=== PATIENT | female | born 1965 | race Caucasian/White ===

== ENCOUNTER 2024-11-24 09:41 | Outpatient (CLI) | payer OTHER, SELFPAY ==
[2024-11-24 10:25] LABS: Basophils Percent Auto 0.6 % (0.2-1.2); Eosinophils Absolute Auto 0.1 K/mm3 (0-0.3); Eosinophils Percent Auto 1.3 % (0-4.4); Hematocrit 41.1 % (37.0-47.0); Hemoglobin 14.2 g/dL (12.0-15.0); Immature Granulocyte Absolute 0.01 K/mm3 (0.00-0.031); Immature Granulocyte Percent A 0.2 % (0-0.5); Lymphocytes Percent Auto 33.6 % (18.3-44.2); Mean Corpuscular HGB Conc 34.5 g/dl (32-36); Mean Corpuscular Hemoglobin 30.1 pg (26-34); Mean Corpuscular Volume 87.3 fl (80-100); Mean Platelet Volume 9.6 fl (7.4-10.4); Monocytes Absolute Auto 0.5 K/mm3 (0.1-0.6); Monocytes Percent Auto 8.2 % (2.6-8.5); Neutrophils Absolute Auto 3.5 K/mm3 (1.3-6.7); Neutrophils Percent Auto 56.1 % (45.5-73.1); Platelet Count Result 347 k/mm3 (150-375); Red Blood Count 4.71 M/mm3 (4.2-5.4); Red Cell Distribution Width 12.1 % (11.5-14.5); White Blood Count 6.3 K/mm3 (4.5-10.0)
[2024-11-24 10:38] LABS: Alanine Aminotransferase 22 U/L (6-35); Albumin Level 4.7 g/dL (3.5-5.1); Alkaline Phosphatase 81 U/L (38-126); Anion Gap 9 mmol/L (4-12); Aspartate Amino Transferase 25 U/L (14-36); Bilirubin,Total 0.7 mg/dL (0.2-1.3); Blood Urea Nitrogen 15 mg/dL (7-17); Calcium 9.7 mg/dL (8.4-10.2); Carbon Dioxide 25 mmol/L (22-30); Chloride 102 mmol/L (98-107); Cholesterol 283 mg/dL (0-200); Estimated Glomerular Filt Rate > 60; Glucose 261 mg/dL (65-110); HDL Direct 52 mg/dL; Potassium 4.1 mmol/L (3.4-5.0); Sodium 136 mmol/L (137-145); Triglycerides 135 mg/dL (<150)
[2024-11-24 10:49] LABS: LDL Cholesterol Direct 169 mg/dL
[2024-11-24 11:03] LABS: Vitamin D 25 Hydroxy 43.4 ng/mL
[2024-11-24 11:22] LABS: Creatinine Urine 219.1 mg/dL
[2024-11-24 11:26] LABS: MALB Creatinine Ratio 23.2 mg/g (0-30); Microalbumin Urine Random 50.9 mg/L (0-16.7)
[2024-11-24 11:38] LABS: Hepatitis B Surface Antigen Negative (Negative)
[2024-11-24 13:07] LABS: Hepatitis B Surface Anti Res Indeterminate
[2024-11-25 06:14] LABS: Hepatitis B Core Ab Total NON-REACTIVE (NON-REACTIVE)
[2024-11-26 02:38] LABS: TSH QUEST 1.97 mIU/L (0.40-4.50)
== END 2024-11-24 09:42 | disposition home or self-care (01) ==
PROVIDERS: PCP Family Medicine; Visit Provider Family Medicine
DX: Z00.00 Encounter for general adult medical examination without abnormal findings (principal); E11.65 Type 2 diabetes mellitus with hyperglycemia; E55.9 Vitamin D deficiency, unspecified; E78.2 Mixed hyperlipidemia; Z11.59 Encounter for screening for other viral diseases
CPT/HCPCS: 36415; 80053; 80061; 82043; 82306; 83036; 84443; 85025; 86704; 86706; 87340